=== PATIENT | female | born 1940 | race Caucasian/White ===

== ENCOUNTER 2016-12-28 14:05 | Observation (INO) | payer OTHER ==
[~2016-12-28] VITALS: Ht 170.2 cm; Wt 72.0 kg
[2016-12-28 14:59] LABS: HEMATOCRIT 37.5 % (36.0-46.0); MCH 33.6 PG (29.0-34.0); MCHC 34.1 G/DL (30.0-36.0); MCV 98.4 FL (83-99); MEAN PLAT.VOLUME 9.8 uM^3 (9.5-12.4); PLATELET COUNT 172 K/uL (156-360); RBC DIS.WIDTH-CV 12.3 % (11.8-14.6); RBC DIS.WIDTH-SD 44.6 % (39-53); RED BLOOD COUNT 3.81 M/uL (3.80-5.20); WHITE BLOOD COUNT 7.9 K/uL (4.1-10.2)
[2016-12-28 15:07] LABS: CHLORIDE 106 mEq/L (99-109); POTASSIUM 4.3 mEq/L (3.7-5.4); SODIUM 140 mEq/L (136-147)
[2016-12-28 15:09] LABS: GLUCOSE 129 mg/dL (70-99)
[2016-12-28 15:10] LABS: ANION GAP 9 MEQ/L (2-14)
[2016-12-28 15:13] LABS: GFR ESTIMATE (CALCULATED) 39 mL/min/
[2016-12-28 15:14] LABS: UREA NITROGEN (BUN) 36 mg/dL (9-23)
[2016-12-28 15:20] LABS: TROP-I INTERPRETATION NEGATIVE; TROPONIN-I 0.01 ng/mL (0.0-0.30)
[2016-12-28] MEDS ORDERED: GRALISE300 MG PO (19:53)
[2016-12-28] MEDS ORDERED: LEVETIRACETAM500 MG PO ×2 (19:54)
[2016-12-28] MEDS ORDERED: VITAMIN D31000 UNI2 PO (19:55)
[2016-12-28] MEDS ORDERED: VITAMIN B (19:55)
[2016-12-28 20:08] VITALS: BP 181/77
[2016-12-28 22:19] LABS: TROP-I INTERPRETATION NEGATIVE; TROPONIN-I 0.02 ng/mL (0.0-0.30)
[2016-12-28 23:24] VITALS: BP 142/79
[2016-12-29 02:39] LABS: TROP-I INTERPRETATION NEGATIVE; TROPONIN-I 0.02 ng/mL (0.0-0.30)
[2016-12-29 03:38] VITALS: BP 121/57
[2016-12-29 08:50] VITALS: BP 136/69; BP 146/66
[2016-12-29 09:00] VITALS: BP 119/73
[2016-12-29 09:22] LABS: EOSINOPHIL (%) 0.9 % (0-5); EOSINOPHIL COUNT 0.1 K/uL (0-0.3); HEMATOCRIT 37.7 % (36.0-46.0); IMMATURE GRANULOCYTE (%) 0.3 % (0.0-0.7); INSTRUMENT ABS NEUTROPHIL CT 4.6 K/uL; LYMPHOCYTE COUNT 2.3 K/uL (1.0-2.8); MCHC 34.5 G/DL (30.0-36.0); MCV 98.7 FL (83-99); MEAN PLAT.VOLUME 9.8 uM^3 (9.5-12.4); MONOCYTE (%) 7.9 % (3-12); MONOCYTE COUNT 0.6 K/uL (0-0.8); NEUTROPHIL (%) 60.5 % (45-76); NEUTROPHIL COUNT 4.6 K/uL (1.8-6.4); PLATELET COUNT 177 K/uL (156-360); RBC DIS.WIDTH-CV 12.1 % (11.8-14.6); RBC DIS.WIDTH-SD 43.9 % (39-53); RED BLOOD COUNT 3.82 M/uL (3.80-5.20); WHITE BLOOD COUNT 7.7 K/uL (4.1-10.2)
[2016-12-29 09:45] LABS: ANION GAP 8 MEQ/L (2-14); CHLORIDE 109 MEQ/L (99-109); GFR ESTIMATE (CALCULATED) 51 mL/min/; POTASSIUM 4.3 MEQ/L (3.7-5.4); SAMPLE HEMOLYSIS CHECK 0; SAMPLE ICTERIC CHECK 0; SAMPLE LIPEMIA CHECK 0; SODIUM 143 MEQ/L (136-147); UREA NITROGEN (BUN) 25 mg/dL (9-23)
[2016-12-29 09:46] LABS: GLUCOSE 91 mg/dL (70-99)
== END 2016-12-29 10:08 | disposition home or self-care (01) ==
LOC: EME 14:05 → EDOF 19:17 → 5WEST 19:17
PROVIDERS: Emergency Medicine; Hospitalist
DX: R55 Syncope and collapse (principal); N17.9 Acute kidney failure, unspecified; I49.9 Cardiac arrhythmia, unspecified; Z91.81 History of falling; Z90.5 Acquired absence of kidney; G40.909 Epilepsy, unspecified, not intractable, without status epilepticus; G89.29 Other chronic pain; M54.9 Dorsalgia, unspecified; Z88.2 Allergy status to sulfonamides; Z88.8 Allergy status to other drugs, medicaments and biological substances; Z82.5 Family history of asthma and other chronic lower respiratory diseases; Z82.3 Family history of stroke; Z82.49 Family history of ischemic heart disease and other diseases of the circulatory system
CPT/HCPCS: 70450; 71020; 72125; 80048; 84484; 85025; 85027; 93005; 99281; 99285; G0378; J1644; J7030